=== PATIENT | female | born 1955 | race Caucasian/White ===

== ENCOUNTER 2024-01-05 00:46 | Day surgery (SDC) | payer MEDICARE, BC, SELFPAY ==
[2024-01-01 11:42] VITALS: BMI 26.6
[2024-01-05 11:15] VITALS: BP 138/73; PULSE 65; RESP 18; TEMP 37; O2SAT 97
--- NOTE | 2024-01-05 11:17 | P.PNAN_ITS ---
Anes - Initial Pre Proc Eval Procedure: Operation Date: 01/05/24 12:30 Proposed Procedures p Esophagogastroduodenoscopy - Dru Harris MD Date/Time: 01/05/24 11:17 Surgeon: Dru Harris MD Pre Op Diagnosis: Dysphagia, heartburn Patient Data Age: 68 Gender: F Height: 1.68 m Weight: 75.4 kg Last Vital Signs Temp 98.6 F 01/05/24 11:15 Pulse 65 01/05/24 11:15 Resp 18 01/05/24 11:15 BP 138/73 01/05/24 11:15 Pulse Ox 97 01/05/24 11:15 O2 Del Method Room Air 01/05/24 11:15 Allergies Allergy/AdvReac Type Severity Reaction Status Date / Time No Known Allergies Allergy Verified 01/05/24 11:14 Home Medications Medication Instructions Recorded Confirmed Type atorvastatin 20 mg tablet 20 mg PO DAILY 12/17/23 01/01/24 History cholecalciferol (vitamin D3) 25 25 mcg PO DAILY 12/17/23 01/01/24 History mcg (1,000 unit) capsule lisinopril 10 mg tablet 10 mg PO DAILY 12/17/23 01/01/24 History oxybutynin chloride 10 mg 10 mg PO DAILY 12/17/23 01/01/24 History tablet,extended release 24 hr Lactobacillus 25 billion 1 cap PO DAILY 01/01/24 01/01/24 History cell-Bifido 25 billion [id number] capsule Patient hx anesthesia problems: none Family hx anesthesia problems: none Results Review: All pre-operative results and documents have been reviewed as part of the pre- operative evaluation. [facility] Past Medical History Medical History (Updated 12/17/23 @ 13:58 by Opal Esparza MA) Dysphagia Heartburn symptom Surgical History Surgical History (Updated 12/17/23 @ 13:59 by Opal Esparza MA) History of bunionectomy Family History Family History (Updated 12/17/23 @ 13:56 by Opal Esparza MA) Father Hypertension Heart disease Mother Hypertension Heart disease Social History Social History (Updated 12/17/23 @ 13:58 by Opal Esparza MA) Smoking status: Never smoker Alcohol intake: current Drinks per week: 3 Alcohol use details: GLASSES WINE Substance use: never Substance use type: does not use Living arrangements: with family Spiritual care concerns: No Anes - Eval Final PreProcedure Day of Procedure 01/05/24 11:17 Patient weight: normal Heart: regular rate and rhythm Lungs: clear to auscultation Airway: Mallampati scale class II Neurological: alert and oriented Last oral intake: >/= 8 hours ASA classification: II Emergent: no Anesthetic plan: proceed Anesthesia type and monitoring: general GIVS and standard monitoring Results Review: All pre-operative results and documents have been reviewed as part of the pre- operative evaluation. Informed Consent: The patient's anesthetic plan and its attendant risks and benefits were discussed with the patient/family/POA. Questions were solicited and answers provided to the satisfaction of the patient/family/POA.
[2024-01-05] MEDS: LACTATED RINGERS 1,000 ML 150 ML IV CONT (11:21)
--- NOTE | 2024-01-05 11:34 | WPDHPUPDATE1 ---
History and Physical Update Update Date/Time: 01/05/24 11:34 History and Physical has been reviewed, including an updated exam of the patient. There are NO changes in the patient's condition. Risks, benefits, and alternatives have been discussed and questions answered. Patient agrees to proceed with procedure.
[2024-01-05] MEDS: BENZOCAINE (*SP) 60 ML SPRAY CAN (HURRICAINE) 1 SPRAY MUCOUS MEM (11:39)
[2024-01-05 11:48] VITALS: BP 116/72; PULSE 69; RESP 26; O2SAT 97
[2024-01-05 11:58] VITALS: BP 112/73; PULSE 65; RESP 17; O2SAT 98
[2024-01-05 12:08] VITALS: BP 114/82; PULSE 61; RESP 13; O2SAT 100
== END 2024-01-05 12:20 | disposition home or self-care (01) ==
PROVIDERS: PCP Physician Assistant; Visit Provider Internal Medicine Gastroenterology
PROC: 0DJ08ZZ Inspection of Upper Intestinal Tract, Via Natural or Artificial Opening Endoscopic (ICD-10-PCS; CPT 43235; principal; 2024-01-05 12:30)
DX: R13.10 Dysphagia, unspecified (principal)
CPT/HCPCS: 43239; 43450; 88305; J2704; J7120